=== PATIENT | male | born 1995 ===

== ENCOUNTER 2018-11-28 09:10 | Day surgery (SDC) | payer MEDICAID ==
[2018-11-27 10:19] VITALS: BMI 29.3
[~2018-11-28 09:10] MED LIST: Lactated Ringer's 500 ML IV SCH
--- NOTE | 2018-11-28 11:55 | CP.SDSHP ---
Same Day Surgery H & P - History Proposed Procedure: colonoscopy - Allergies Allergies: Allergies lactose Allergy (Verified 11/28/18 09:36) DIARRHEA shellfish derived Allergy (Verified 11/28/18 09:36) RASH - Physical Exam Vital Signs: Vital Signs 11/28/18 09:49 Temperature 98.6 F Pulse Rate 90 Respiratory 18 Rate Blood Pressure 117/71 O2 Sat by Pulse 100 Oximetry - Date & Time Date: 11/28/18 Time: 11:55 Short Stay Discharge - Short Stay Discharge Admitting Diagnosis/Reason for Visit: CHANGE IN BOWEL HABIT / ABDOMINAL PAIN Disposition: HOME/ ROUTINE
[2018-11-28] MEDS ORDERED: Propofol 10 mg/ml Inj (20 ML) ONE (12:28)
[2018-11-28 13:16] VITALS: TEMP 98.4
[2018-11-28 14:10] VITALS: BP 103/65; PULSE 85; RESP 11; O2SAT 98
== END 2018-11-28 14:08 | disposition home or self-care (01) ==
LOC: C.ENDO 09:10
PROVIDERS: ATTEND Colon & Rectal Surgery
DX: R19.4 Change in bowel habit (principal); R10.9 Unspecified abdominal pain; D12.5 Benign neoplasm of sigmoid colon; D12.3 Benign neoplasm of transverse colon; K64.8 Other hemorrhoids
CPT/HCPCS: 45380; 45385; 88305; J2704; J7120

== ENCOUNTER 2018-12-05 10:04 | Day surgery (SDC) | payer MEDICAID ==
--- NOTE | 2018-12-05 08:56 | CP.SDSHP ---
Same Day Surgery H & P - History Proposed Procedure: colonoscopy - Previous Medical/Surgical History Comments: depression - Allergies Allergies: Allergies lactose Allergy (Verified 11/28/18 09:36) DIARRHEA shellfish derived Allergy (Verified 11/28/18 09:36) RASH - {Optional Preform as Required} : Other (anal condylomas) - Date & Time Date: 12/05/18 Time: 08:56 Short Stay Discharge - Short Stay Discharge Admitting Diagnosis/Reason for Visit: ANOGENITAL (VENEREAL) WARTS Disposition: HOME/ ROUTINE
[2018-12-05] MEDS ORDERED: Bupivacaine-Epi 0.5%-1:200,000 PF Inj ONE (10:47)
[2018-12-05] MEDS ORDERED: ceFAZolin 1 gm in NS 0 GM/0 ML BAG IVPB ONE (10:47)
[2018-12-05 10:51] VITALS: BMI 29.0
[2018-12-05] MEDS ORDERED: Propofol 10 mg/ml Inj (20 ML) ONE (11:22)
[2018-12-05] MEDS ORDERED: Midazolam 2 MG/2 ML VIAL ONE (11:22)
[2018-12-05] MEDS ORDERED: HYDROmorphone 0.5 mg/0.5 ml ISec IVP PRN (11:57)
--- NOTE | 2018-12-05 11:59 | PCM.SURG1 ---
Surgeon's Initial Post Op Note - Surgeon's Notes Surgeon: Dr. Giron Electroplater: Dr. Durand Type of Anesthesia: General LMA Pre-Operative Diagnosis: anal condylomas Operative Findings: see operative report Post-Operative Diagnosis: anal condylomas Operation Performed: excision of anal condylomas Specimen/Specimens Removed: anal condylomas Estimated Blood Loss: EBL {In ML}: 1 Blood Products Given: N/A Drains Used: No Drains Post-Op Condition: Good Date of Surgery/Procedure: 12/05/18 Time of Surgery/Procedure: 11:30
[2018-12-05 14:27] VITALS: TEMP 97; O2SAT 98
[2018-12-05 14:56] VITALS: BP 112/75; PULSE 82; RESP 15
--- NOTE | 2018-12-05 21:26 | OP ---
PROCEDURE DATE: 12/05/2018 SURGEON: Saleem Giron MD FARM RANCHER: Dr. Durand TYPE OF ANESTHESIA: General. ANESTHESIA ADMINISTERED BY: Dr. Claros PREOPERATIVE DIAGNOSIS: Perianal and anal condylomas, extensive. POSTOPERATIVE DIAGNOSIS: Perianal and anal condylomas, extensive. PROCEDURE: Excision and fulguration of anal and perianal condylomas. FINDINGS: This is a 23-year-old gentleman who presented with a history of anal pain and discomfort and some change in bowel habit. The colonoscopy was essentially negative except for polyps, and there were multiple clusters of anal condyloma along the dentate line mostly in the posterior, anterior and lateral left location. There were multiple circumferential small anal condylomas in perianal location. Procedure was discussed with him, and informed consent was obtained. DESCRIPTION OF PROCEDURE: After satisfactory general anesthesia, the patient in lithotomy position, the surgical area was prepped and draped in a sterile fashion. Then with the Hill-Schmidt retractor anally, the anal clusters around the dentate line were noted, and they were fulgurated and partially excised for pathology and bleeding was controlled. The perianal condylomas multiple were excised, and the remainder were fulgurated with good hemostasis. The perianal tissue was infiltrated with Marcaine 0.5% with epinephrine about 5 mL. Surgicel was applied in the anal canal, covering the perianal area. He was transferred to the recovery room in stable condition. ESTIMATED BLOOD LOSS: Minimal. Saleem Giron MD
== END 2018-12-05 14:57 | disposition home or self-care (01) ==
LOC: C.SDS 10:04
PROVIDERS: ATTEND Colon & Rectal Surgery
DX: A63.0 Anogenital (venereal) warts (principal)
CPT/HCPCS: 46922; 88305; J1885; J2250; J2405; J2704; J3010